=== PATIENT | male | born 1990 | race African-American/Black ===

== ENCOUNTER → 2017-07-20 | Outpatient (CLI) | payer MEDICAID | LOC: BRMIMAGING 11:10 | PROVIDERS: ATTEND Family Medicine | DX: N50.811 Right testicular pain (principal) | CPT/HCPCS: 76870-PO ==

== ENCOUNTER → 2017-08-11 | Outpatient (CLI) | payer MEDICAID | LOC: BRMIMAGING 14:36 | PROVIDERS: ATTEND Physician Assistant | DX: N50.89 Other specified disorders of the male genital organs (principal); Z90.79 Acquired absence of other genital organ(s) | CPT/HCPCS: 76870-PO ==